=== PATIENT | male | born 1955 | race Caucasian/White ===

== ENCOUNTER 2016-08-24 11:43 | Emergency (ER) | payer MEDICARE ==
[2016-08-24 12:12] VITALS: BP 114/69; PULSE 61; O2SAT 96
--- NOTE | 2016-08-24 12:36 | ERPHSYRPT ---
- History of Present Illness Time Seen by Provider: 08/24/16 12:28 Source: patient Exam Limitations: no limitations Patient Subjective Stated Complaint: pt states that he tripped and fell yesterday falling on left wrist. complains of left wrist pain denies numbness or tingling to extremity Triage Nursing Assessment: pt alert warm and dry resp easy non labored swelling noted to left wrist good pulses good cap refill noted. Physician History: 59 was this age of 61-year-old white male arrives with complaint of pain in his left wrist since yesterday. According to the patient he fell yesterday landing on his left wrist. He complains of pain in his left wrist. 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 . Occurred: yesterday Method of Injury: fell Quality: aching Severity of Pain-Max: moderate Severity of Pain-Current: moderate Extremities Pain Location: wrist: left Modifying Factors: Improves With: movement, other (palpation) Allergies/Adverse Reactions: nalbuphine [From [facility]] Allergy (Verified 08/24/16 12:08) Home Medications: Alprazolam [Xanax] 2 mg PO QID 06/08/16 [History] Morphine Sulfate 0 mg PO BID 06/08/16 [History] Hx Tetanus, Diphtheria Vaccination/Date Given: Yes Hx Influenza Vaccination/Date Given: No Hx Pneumococcal Vaccination/Date Given: No Immunizations Up to Date: Yes - Review of Systems Constitutional: No Fever, No Chills Eyes: No Symptoms Ears, Nose, & Throat: No Symptoms Respiratory: No Cough, No Dyspnea Cardiac: No Chest Pain, No Edema, No Syncope Abdominal/Gastrointestinal: No Abdominal Pain, No Nausea, No Vomiting, No Diarrhea Genitourinary Symptoms: No Dysuria Musculoskeletal: Fall, Other (left wrist pain) Skin: No Rash Neurological: No Dizziness, No Focal Weakness, No Sensory Changes Psychological: No Symptoms Endocrine: No Symptoms All Other Systems: Reviewed and Negative - Past Medical History Pertinent Past Medical History: Yes Other Medical History: chronic pain from fall from ladder. - Past Surgical History Past Surgical History: Yes Other Surgical History: right above knee amputation. - Social History Smoking Status: Current every day smoker How long have you smoked: 40 years Exposure to second hand smoke: Yes Drug Use: none Patient Lives Alone: No - Nursing Vital Signs Nursing Vital Signs: Initial Vital Signs Temperature 98.2 F Temperature Source Oral Pulse Rate 61 Respiratory Rate 18 Blood Pressure [Right Arm] 114/69 Pain Intensity 8 - Physical Exam General Appearance: alert Eyes, Ears, Nose, Throat Exam: moist mucous membranes Neck Exam: non-tender, supple Cardiovascular/Respiratory Exam: chest non-tender, normal breath sounds, regular rate/rhythm, no respiratory distress Abdominal Exam: non-tender, No guarding Back Exam: normal inspection, No vertebral tenderness Shoulder Exam: normal inspection, non-tender, no evidence of injury, normal ROM Elbow/Forearm Exam: normal inspection, non-tender, no evidence of injury, normal ROM Wrist Exam: No normal inspection (left wrist tender with palpation dorsally, decreased range of motion left wrist secondary to pain) Hand Exam: normal inspection, non-tender, no evidence of injury, normal ROM Neuro/Tendon Exam: normal sensation Mental Status Exam: alert, oriented x 3, cooperative Skin Exam: normal color, warm, dry SpO2 Interpretation: normal (96%) SpO2: 96 Oxygen Delivery: Room Air - Radiology Exams Left Wrist X-ray Interpretation: Negative, No Fracture, No Subluxation, Other (three-view wrist: Tiny lunate bone cyst and mild first MCP degenerative changes, no other bony, articular, or soft tissue abnormalities) Ordered Tests: Active Orders 24 hr Category Date Time Status Splint STAT Care 08/24/16 12:58 Active WRIST (MIN 3 VIEWS) Stat Exams 08/24/16 12:32 Completed - Progress Progress: improved Progress Note: 08/24/16 13:00 61-year-old white male arrives with complaint of pain in left wrist after falling yesterday. Patient has pain with movement of the left wrist and tenderness dorsally with palpation he has full range of motion left hand elbow fingers good capillary refill left fingers sensation intact left fingers. X-ray left wrist 3 view shows tiny lunate bone cyst and mild first MCP degenerative changes there are no other bony, articular, or soft tissue abnormalities. Patient is on extended release morphine for pain at home. Patient was offered Toradol injection here in the emergency room he declined. Will have nurse place a Velcro wrist splint on the left wrist, Patient has pain medications at home. Patient states he wants to leave right away Will discharge once wristlet is in place. - Departure Time of Disposition: 13:01 Departure Disposition: Home Clinical Impression: incidental finding tiny bone cyst lunate Accidental fall Qualifiers: Encounter type: initial encounter Qualified Code(s): W19.XXXA - Unspecified fall, initial encounter Strain of left wrist Qualifiers: Encounter type: initial encounter Qualified Code(s): S66.912A - Strain of unspecified muscle, fascia and tendon at wrist and hand level, left hand, initial encounter Condition: Fair Critical Care Time: No Additional Instructions: Return home. Ice and elevate your left wrist 24-48 hours. Pain medications as prescribed by your family doctor. Follow-up with your family doctor. Return for acute distress or for severe symptoms.
--- NOTE | 2016-08-24 12:56 | XRAY ---
Indication: Pain and swelling following fall. Comparison: None 3 views of the left wrist demonstrates tiny lunate bone cyst and mild first MCP degenerative changes. No other bony, articular, or soft tissue abnormalities.
== END 2016-08-24 13:14 | disposition home or self-care (01) ==
LOC: ED 11:43
DX: S66.912A Strain of unspecified muscle, fascia and tendon at wrist and hand level, left hand, initial encounter (principal); W01.0XXA Fall on same level from slipping, tripping and stumbling without subsequent striking against object, initial encounter; M25.532 Pain in left wrist; M85.622 Other cyst of bone, left upper arm
CPT/HCPCS: 73110; 99283; L3908